=== PATIENT | male | born 1980 | race Caucasian/White ===

== ENCOUNTER 2016-11-01 19:35 | Emergency (ER) | payer BC ==
--- NOTE | 2016-11-01 22:28 | ED CLINICAL REPORT ---
Clinical Report - Physicians/Mid Levels [facility] [address] [place] [address] 11/01/2016 19:38 [id number] Time Seen: 20:13 Nov 01 2016. Arrived- By private vehicle. Historian- patient. HISTORY OF PRESENT ILLNESS Chief Complaint: ABDOMINAL PAIN. At its maximum, severity described as moderate. It is described as "pain", cramping and well localized. Quality not described as migrating. No radiation. It is described as located in the left upper quadrant. This started about 1 week ago but constant starting about 2 hours ago. and is still present. It has been intermittent. The patient has had nausea. No loss of appetite, vomiting or diarrhea. Similar symptoms previously: None. Recent medical care: Not recently seen/assessed. REVIEW OF SYSTEMS No constipation, black stools, hematemesis, difficulty with urination or pain with urination. No urinary frequency, fever, headache, chest pain or joint pain. No skin rash, chills or back pain. All systems otherwise negative, except as recorded above. PAST HISTORY See nurses notes. Has had a single episode of mild urinary calculi. No history of heart disease, lung disease or renal disease. SOCIAL HISTORY Never smoker. Alcohol use. No drug use. ADDITIONAL NOTES The nursing notes have been reviewed. PHYSICAL EXAM Appearance: Alert. Oriented X3. No acute distress. Eyes: Pupils equal, round and reactive to light. Eyes normal inspection. ENT: Nose normal. Pharynx normal. Neck: Normal inspection. Neck supple. No lymphadenopathy. CVS: Normal heart rate and rhythm. Heart sounds normal. Respiratory: No respiratory distress. Breath sounds normal. Abdomen: Soft. Mild tenderness in the left upper quadrant. No rebound tenderness. No organomegaly. No mass. Back: Normal inspection. No CVA tenderness. Skin: Skin warm and dry. Normal skin color. No rash. Normal skin turgor. Extremities: Extremities exhibit normal ROM. Neuro: Oriented X 3. No motor deficit. No sensory deficit. LABS, X-RAYS, AND EKG Laboratory Tests: UA-Culture if indicated: (DEVANG: 11/01/2016 21:50) ( MsgRcvd 11/01/2016 22:00) Final results Test Result Flag Units (Reference) URINE COLOR YELLOW URINE APPEARANCE CLEAR URINE GLUCOSE NEGATIVE (NEGATIVE) URINE BILIRUBIN NEGATIVE (NEGATIVE) URINE KETONE 2+ (NEGATIVE) URINE SPECIFIC GRAVITY 1.020 (1.010-1.030) URINE PH 5.5 (5.0-8.0) URINE PROTEIN NEGATIVE (NEGATIVE) URINE UROBILINOGEN 0.2 EU/dL (0.2-1.0) URINE NITRITE NEGATIVE (NEGATIVE) URINE BLOOD 1+ (NEGATIVE) URINE LEUK ESTERASE NEGATIVE (NEGATIVE) URINE RBC NONE SEEN rbc/hpf (0-1) URINE WBC RARE wbc/hpf (0-1) URINE EPITHELIAL CELLS 0-1 EPI/hpf (0-5) URINE BACTERIA NONE SEEN (NONE SEEN) URINE COMMENT CULT NOT INDICATED URINE CULTURES ARE SET-UP BASED ON THE FOLLOWING CRITERIA:POSITIVE NITRITEPOSITIVE LEUKOCYTE ESTERASEGREATER THAN 10 WHITE BLOOD CELLSMODERATE (2+) OR GREATER BACTERIA CBC w Diff: (DEVANG: 11/01/2016 20:10) ( [facility] 11/01/2016 20:20) Final results Test Result Flag Units (Reference) WHITE BLOOD COUNT 8.4 K/uL (4.5-11.5) RED BLOOD COUNT 5.24 M/uL (4.50-5.90) HEMOGLOBIN 15.9 gm/dL (13.5-17.5) HEMATOCRIT 46.5 % (41.0-53.0) MEAN CELL VOLUME 89 fL (80-100) MEAN CORPUSCULAR HGB 30 pg (26-34) MEAN CORPUSCULAR HGB CONC 34 g/dL (31-37) RED CELL DISTRIBUTION WIDTH 12.4 % (11.6-14.8) PLATELET COUNT 230 K/uL (150-400) NEUTROPHIL % 68.1 % (50-75) LYMPH % 22.6 L % (25-40) MONO % 8.6 % (3-14) EOSINOPHIL % 0.3 % (0-4) BASOPHIL % 0.4 % (0-2) CMP: (DEVANG: 11/01/2016 20:10) ( [facility] 11/01/2016 20:45) Final results Test Result Flag Units (Reference) GLUCOSE 114 H mg/dL (70-110) BUN 18 mg/dL (7-18) CREATININE 1.0 mg/dL (0.6-1.3) Estimated GFR >60 mL/min Estimated GFR- >60 mL/min Note: Persistent reduction over 3 months in eGFR<60 mL/min/1.73 m2 defines CKD. Patients with eGFR values>=60 mL/min/1.73 m2 may also have CKD if evidence ofpersistent proteinuria. Additional information may be foundat www.kidney.org. SODIUM 140 mmol/L (136-145) POTASSIUM 3.4 L mmol/L (3.5-5.1) CHLORIDE 103 mmol/L (98-107) CARBON DIOXIDE 22 mmol/L (21-32) CALCIUM 9.1 mg/dL (8.5-10.1) TOTAL PROTEIN 8.0 g/dL (6.4-8.2) ALBUMIN 4.4 g/dL (3.3-5.0) BILIRUBIN, TOTAL 1.0 mg/dL (0.0-1.0) ALKALINE PHOSPHATASE 58 U/L (46-116) AST (SGOT) 23 U/L (15-37) ALT (SGPT) 44 U/L (12-78) LIPASE 113 U/L (73-393) AMYLASE 45 U/L (25-115) . PROGRESS AND PROCEDURES Course of Care: 20:05. Patient stable. Mild tenderness in the left upper quadrant. No rebound tenderness. He is afebrile and doesn't look significantly toxic. We'll check basic labs and try to make comfortable. Differential includes gastritis versus spleen enlargement versus kidney stone versus other. 22:30. Patient had a long wait waiting for his urinalysis. CBC and CMP are normal. He does have some microcytic hematuria. This could be another kidney stone. Discussed further workup with the patient. At this point in time he does not have evidence of infection or acute renal insufficiency. He probably needs CT urinary tract at some point but at this point in time he doesn't want to wait around for the results. I think this is acceptable as I doubt life-threatening etiology at this time. We'll still give him a trial of a PPI but he should follow-up with a urologist as well as his new primary care provider for further evaluation in the next 3-5 days. Disposition: Discharged in good and improved condition. CLINICAL IMPRESSION Left upper quadrant abdominal pain. Microscopic hematuria INSTRUCTIONS Do not work for one day until better. Drink plenty of fluids. No dietary restrictions. Warnings: Further evaluation is necessary in order to conduct further tests and assess the possibility of serious illness. It is very important to follow up with a physician. GENERAL WARNINGS: Return or contact your physician immediately if your condition worsens or changes unexpectedly, if not improving as expected, or if other problems arise. SPECIFICALLY, return if you develop fever, vomiting, the inability to keep fluids down or fainting; or for continued pain in the abdomen. Prescription Medications: Prilosec 40 mg capsules: take 1 capsule orally every 12 hours for 7 days. Dispense fifteen (15). No refill. Substitution is permissible. Understanding of the discharge instructions verbalized by patient. Follow-up with: [facility], , , [address], , [place] [phone]; Marcel Villalobos MD, Urology, , [address] [place] [address] Follow up. Call for the next available appointment. Reason for referral: Or with another primary care provider. (Electronically signed by Oneal Hartmann, 11/01/2016 23:40)
--- NOTE | 2016-11-01 22:28 | ED ORDER SUMMARY ---
..... Patient: KIET TRUJILLO OrderSheet [facility] VisitID: [id number] [place] [address] 36y, M Registration Date/Time: 11/01/2016 ORDER SHEET Weight: 74.8 kg (stated) Allergies: No Known Drug Allergy GENERAL ORDERS: CBC w Diff Urgent (19:52 11/01/2016 Daron GOFF) (Ack 19:59 ALawrence ER Tech1) (20:04 TLewis R.N.) CMP Urgent (19:52 11/01/2016 Daron GOFF) (Ack 19:59 ALawrence ER Tech1) (20:04 TLewis R.N.) Lipase Urgent (19:52 11/01/2016 Daron GOFF) (Ack 19:59 ALawrence ER Tech1) (20:04 TLewis R.N.) Amylase Urgent (19:52 11/01/2016 Daron GOFF) (Ack 19:59 ALawrence ER Tech1) (20:04 TLewis R.N.) UA-Culture if indicated Urgent (20:18 11/01/2016 JCoates) (Ack 20:28 ALawrence ER Tech1) (21:58 TLewis R.N.) MEDICATION ORDERS: IV FLUIDS: IV NS : initial bolus 1000 mL (1000 mL/hr), then none - (NOW) (19:51 11/01/2016 Daron GOFF) (20:09 TLewis R.N.) Zofran IV 8 mg (NOW) (19:52 11/01/2016 Daron GOFF) (20:05 TLewis R.N.) ORDER SHEET NOTES: [Electronically signed by Domingo Greene R.N. (22:38 11/01/2016)] [Electronically signed by Oneal Hartmann (23:40 11/01/2016)] [Electronically locked/signed by Domingo Greene R.N. (22:38 11/01/2016)]
--- NOTE | 2016-11-01 22:28 | ED ORDER SUMMARY ---
..... Patient: KIET TRUJILLO OrderSheet [facility] VisitID: [id number] [place] [address] 36y, M Registration Date/Time: 11/01/2016 ORDER SHEET Weight: 74.8 kg (stated) Allergies: No Known Drug Allergy GENERAL ORDERS: CBC w Diff Urgent (19:52 11/01/2016 Daron GOFF) (Ack 19:59 ALawrence ER Tech1) (20:04 TLewis R.N.) CMP Urgent (19:52 11/01/2016 Daron GOFF) (Ack 19:59 ALawrence ER Tech1) (20:04 TLewis R.N.) Lipase Urgent (19:52 11/01/2016 Daron GOFF) (Ack 19:59 ALawrence ER Tech1) (20:04 TLewis R.N.) Amylase Urgent (19:52 11/01/2016 Daron GOFF) (Ack 19:59 ALawrence ER Tech1) (20:04 TLewis R.N.) UA-Culture if indicated Urgent (20:18 11/01/2016 JCoates) (Ack 20:28 ALawrence ER Tech1) (21:58 TLewis R.N.) MEDICATION ORDERS: IV FLUIDS: IV NS : initial bolus 1000 mL (1000 mL/hr), then none - (NOW) (19:51 11/01/2016 Daron GOFF) (20:09 TLewis R.N.) Zofran IV 8 mg (NOW) (19:52 11/01/2016 Daron GOFF) (20:05 TLewis R.N.) ORDER SHEET NOTES: [Electronically signed by Domingo Greene R.N. (22:38 11/01/2016)] [Electronically signed by Oneal Hartmann (23:40 11/01/2016)] [Electronically locked/signed by Domingo Greene R.N. (22:38 11/01/2016)]
--- NOTE | 2016-11-01 22:28 | ED CLINICAL REPORT ---
Clinical Report - Physicians/Mid Levels Located [facility] [address] [place] [address] 11/01/2016 19:38 [id number] Time Seen: 20:13 Nov 01 2016. Arrived- By private vehicle. Historian- patient. HISTORY OF PRESENT ILLNESS Chief Complaint: ABDOMINAL PAIN. At its maximum, severity described as moderate. It is described as "pain", cramping and well localized. Quality not described as migrating. No radiation. It is described as located in the left upper quadrant. This started about 1 week ago but constant starting about 2 hours ago. and is still present. It has been intermittent. The patient has had nausea. No loss of appetite, vomiting or diarrhea. Similar symptoms previously: None. Recent medical care: Not recently seen/assessed. REVIEW OF SYSTEMS No constipation, black stools, hematemesis, difficulty with urination or pain with urination. No urinary frequency, fever, headache, chest pain or joint pain. No skin rash, chills or back pain. All systems otherwise negative, except as recorded above. PAST HISTORY See nurses notes. Has had a single episode of mild urinary calculi. No history of heart disease, lung disease or renal disease. SOCIAL HISTORY Never smoker. Alcohol use. No drug use. ADDITIONAL NOTES The nursing notes have been reviewed. PHYSICAL EXAM Appearance: Alert. Oriented X3. No acute distress. Eyes: Pupils equal, round and reactive to light. Eyes normal inspection. ENT: Nose normal. Pharynx normal. Neck: Normal inspection. Neck supple. No lymphadenopathy. CVS: Normal heart rate and rhythm. Heart sounds normal. Respiratory: No respiratory distress. Breath sounds normal. Abdomen: Soft. Mild tenderness in the left upper quadrant. No rebound tenderness. No organomegaly. No mass. Back: Normal inspection. No CVA tenderness. Skin: Skin warm and dry. Normal skin color. No rash. Normal skin turgor. Extremities: Extremities exhibit normal ROM. Neuro: Oriented X 3. No motor deficit. No sensory deficit. LABS, X-RAYS, AND EKG Laboratory Tests: UA-Culture if indicated: (DEVANG: 11/01/2016 21:50) ( MsgRcvd 11/01/2016 22:00) Final results Test Result Flag Units (Reference) URINE COLOR YELLOW URINE APPEARANCE CLEAR URINE GLUCOSE NEGATIVE (NEGATIVE) URINE BILIRUBIN NEGATIVE (NEGATIVE) URINE KETONE 2+ (NEGATIVE) URINE SPECIFIC GRAVITY 1.020 (1.010-1.030) URINE PH 5.5 (5.0-8.0) URINE PROTEIN NEGATIVE (NEGATIVE) URINE UROBILINOGEN 0.2 EU/dL (0.2-1.0) URINE NITRITE NEGATIVE (NEGATIVE) URINE BLOOD 1+ (NEGATIVE) URINE LEUK ESTERASE NEGATIVE (NEGATIVE) URINE RBC NONE SEEN rbc/hpf (0-1) URINE WBC RARE wbc/hpf (0-1) URINE EPITHELIAL CELLS 0-1 EPI/hpf (0-5) URINE BACTERIA NONE SEEN (NONE SEEN) URINE COMMENT CULT NOT INDICATED URINE CULTURES ARE SET-UP BASED ON THE FOLLOWING CRITERIA:POSITIVE NITRITEPOSITIVE LEUKOCYTE ESTERASEGREATER THAN 10 WHITE BLOOD CELLSMODERATE (2+) OR GREATER BACTERIA CBC w Diff: (DEVANG: 11/01/2016 20:10) ( [facility] 11/01/2016 20:20) Final results Test Result Flag Units (Reference) WHITE BLOOD COUNT 8.4 K/uL (4.5-11.5) RED BLOOD COUNT 5.24 M/uL (4.50-5.90) HEMOGLOBIN 15.9 gm/dL (13.5-17.5) HEMATOCRIT 46.5 % (41.0-53.0) MEAN CELL VOLUME 89 fL (80-100) MEAN CORPUSCULAR HGB 30 pg (26-34) MEAN CORPUSCULAR HGB CONC 34 g/dL (31-37) RED CELL DISTRIBUTION WIDTH 12.4 % (11.6-14.8) PLATELET COUNT 230 K/uL (150-400) NEUTROPHIL % 68.1 % (50-75) LYMPH % 22.6 L % (25-40) MONO % 8.6 % (3-14) EOSINOPHIL % 0.3 % (0-4) BASOPHIL % 0.4 % (0-2) CMP: (DEVANG: 11/01/2016 20:10) ( [facility] 11/01/2016 20:45) Final results Test Result Flag Units (Reference) GLUCOSE 114 H mg/dL (70-110) BUN 18 mg/dL (7-18) CREATININE 1.0 mg/dL (0.6-1.3) Estimated GFR >60 mL/min Estimated GFR- >60 mL/min Note: Persistent reduction over 3 months in eGFR<60 mL/min/1.73 m2 defines CKD. Patients with eGFR values>=60 mL/min/1.73 m2 may also have CKD if evidence ofpersistent proteinuria. Additional information may be foundat [email or web address].org. SODIUM 140 mmol/L (136-145) POTASSIUM 3.4 L mmol/L (3.5-5.1) CHLORIDE 103 mmol/L (98-107) CARBON DIOXIDE 22 mmol/L (21-32) CALCIUM 9.1 mg/dL (8.5-10.1) TOTAL PROTEIN 8.0 g/dL (6.4-8.2) ALBUMIN 4.4 g/dL (3.3-5.0) BILIRUBIN, TOTAL 1.0 mg/dL (0.0-1.0) ALKALINE PHOSPHATASE 58 U/L (46-116) AST (SGOT) 23 U/L (15-37) ALT (SGPT) 44 U/L (12-78) LIPASE 113 U/L (73-393) AMYLASE 45 U/L (25-115) . PROGRESS AND PROCEDURES Course of Care: 20:05. Patient stable. Mild tenderness in the left upper quadrant. No rebound tenderness. He is afebrile and doesn't look significantly toxic. We'll check basic labs and try to make comfortable. Differential includes gastritis versus spleen enlargement versus kidney stone versus other. 22:30. Patient had a long wait waiting for his urinalysis. CBC and CMP are normal. He does have some microcytic hematuria. This could be another kidney stone. Discussed further workup with the patient. At this point in time he does not have evidence of infection or acute renal insufficiency. He probably needs CT urinary tract at some point but at this point in time he doesn't want to wait around for the results. I think this is acceptable as I doubt life-threatening etiology at this time. We'll still give him a trial of a PPI but he should follow-up with a urologist as well as his new primary care provider for further evaluation in the next 3-5 days. Disposition: Discharged in good and improved condition. CLINICAL IMPRESSION Left upper quadrant abdominal pain. Microscopic hematuria INSTRUCTIONS Do not work for one day until better. Drink plenty of fluids. No dietary restrictions. Warnings: Further evaluation is necessary in order to conduct further tests and assess the possibility of serious illness. It is very important to follow up with a physician. GENERAL WARNINGS: Return or contact your physician immediately if your condition worsens or changes unexpectedly, if not improving as expected, or if other problems arise. SPECIFICALLY, return if you develop fever, vomiting, the inability to keep fluids down or fainting; or for continued pain in the abdomen. Prescription Medications: Prilosec 40 mg capsules: take 1 capsule orally every 12 hours for 7 days. Dispense fifteen (15). No refill. Substitution is permissible. Understanding of the discharge instructions verbalized by patient. Follow-up with: [facility], , , [address], , [place] [phone]; Marcel Villalobos MD, Urology, , [address] [place] [address] Follow up. Call for the next available appointment. Reason for referral: Or with another primary care provider. (Electronically signed by Oneal [place], 11/01/2016 23:40)
--- NOTE | 2016-11-01 22:28 | ED NURSING NOTES ---
Clinical Report - Nurses [facility] [address] [place] [address] 11/01/2016 19:38 Patient: KIET TRUJILLO TRIAGE Triage time 19:47. Acuity: LEVEL 3. Chief Complaint: ABDOMINAL PAIN and NAUSEA. --19:52 Domingo Greene R.N. 19:47 11/01/16. BP: 136/89. HR: 108. RR: 15. O2 saturation: 100%. Temp: 98.4 F. Pain level now 410. --19:52 Domingo Greene R.N. Weight: 74.8 kg stated. Height/Length: 70 inches Per Patient. BMI: 23.7. --19:52 Domingo Greene R.N. Medications None. --19:51 Domingo Greene R.N. Medication/allergy information source: the patient. --19:52 Domingo Greene R.N. Allergies No Known Drug Allergy. --19:51 Domingo Greene R.N. History Arrived by private vehicle. Historian: patient. Unaccompanied. Primary physician (none). This started today. ( Pt is having upper left abdominal pain that became constant pain about 2 hrs ago with nausea. Aching pain 4/10 with pressure and radiates into the back. Pt denies any urinary symptoms.). He has had nausea. ( Last bm was this am. Pt stated it was normal brown and formed.). Treatment REGISTER IN CHANCERY: None. PAST MEDICAL HX: Immunizations: up-to-date. SURGERY HX: No history of previous surgery. SOCIAL HX: Never smoker. Occasional alcohol use; consumes beer occasionally. No drug use. --19:52 Domingo Greene R.N. ADDITIONAL SURGERIES: no known surgeries. Interventions ID band on patient. To treatment room. --19:52 Domingo Greene R.N. PHYSICAL ASSESSMENT GENERAL / NEURO / PSYCH: Alert. Oriented X 4. Appears in no acute distress. HEENT: Mucous membranes are pink. RESPIRATORY: Respirations not labored. Breath sounds within normal limits. CVS: Normal sinus rhythm noted. Capillary refill less than 2 seconds. GI / : The patient has had nausea. Abdomen soft and nontender. Bowel sounds within normal limits. Normal genitalia. SKIN: Skin is warm and dry. --19:53 Domingo Greene R.N. NURSING PROGRESS NOTES Patient gowned. Two patient identifiers checked. Call light placed in reach. Side rails up x 1. Bed placed in lowest position. Brakes of bed on. --19:53 Domingo Greene R.N. 20:04 11/01/2016 Site #1 started via IV in the right antecubital space with an 20g angiocath, with good blood return; one attempt. Blood drawn: rainbow set. Labeled in the presence of the patient and sent to the lab. Saline lock flushed with 10 mL saline. --20:04 Domingo Greene R.N. 20:05 11/01/2016 Zofran (Ondansetron HCl) IVP 4 mg given over 1 minute(s) via site #1. Allergies verified and confirmed 5 rights. IV patency established. IV site checked: no pain, redness, or swelling. IV flushed thoroughly pre- and post-medication administration. IVP given by RN. --20:05 Domingo Greene R.N. 20:09 11/01/2016 Started bag #1 1000 mL IV Fluids IV NS (Saline); at 1000 mL/hr over 1 hour(s) via site #1 via IV pump. Allergies verified and confirmed 5 rights. IV patency established. IV site checked: no pain, redness, or swelling. IV flushed thoroughly pre- and post-medication administration. --20:09 Domingo Greene R.N. 21:25 11/01/16. BP: 119/70. HR: 89. RR: 15. O2 saturation: 100%. Pain level now 10. --21:26 Domingo Greene R.N. ( Pt feels a little better with nausea.). --21:26 Domingo Greene R.N. 21:58 11/01/2016 IV Fluids IV NS Discontinued: bag #1. Total amount infused: 1000 mL. IV patency established. IV site checked: no pain, redness, or swelling. IV flushed thoroughly. --21:58 Domingo Greene R.N. DISPOSITION / DISCHARGE 22:36 11/01/2016 Site #1 removed upon discharge. Bandaid applied. --22:36 Domingo Greene R.N. Departure time: 22:34. Condition at departure: improved. No learning barriers present. Discharge instructions provided and reviewed with the patient. Reviewed medication(s) side effects, precautions, dosing and course information. Prescription(s) given to the patient. Reviewed referral to a urologist. Work note given (one day). Written instructions provided in Occitan. The patient was discharged by the physician. He was discharged home and unaccompanied at time of discharge. He left the Emergency Department ambulatory and via private vehicle. Patient driving. --22:38 Domingo Greene R.N. 22:33 11/01/16. BP: 118/65. HR: 70. RR: 15. O2 saturation: 98%. Temp: 98.4 F. Pain level now 3/10. --22:38 Domingo Greene R.N. Locked/Released at 11/01/2016 22:38 by Domingo Greene R.N.
--- NOTE | 2016-11-01 23:41 | ED MAR SUMMARY ---
..... Medication Administration Record [facility] [address] [place] [address] Patient: KIET TRUJILLO Visit ID: [id number] 36y, M Weight: 74.8 kg Height/Length: 70 in BMI: 23.7 ALLERGIES: No Known Drug Allergy Given 20:05 11/01/2016 Domingo Greene R.N. Medication Administered: ZOFRAN [IVP] (ONDANSETRON HCL), Dose: 4 mg IVP over 1 minute(s), Site: #1 right AC. Medication Ordered: Zofran IV 8 mg (NOW). Start 20:09 11/01/2016 Domingo Greene RSarahN., Stop 21:58 11/01/2016 Domingo Greene R.N. Medication Administered: IV NS (SALINE), Dose: IV Fluids over 1 hour(s), Rate: 1000 mL/hr, Dispensed: 1000 mL bag, Site: #1 right AC. Medication Ordered: IV NS : initial bolus 1000 mL (1000 mL/hr), then none - (NOW).
--- NOTE | 2016-11-01 23:41 | ED DISCHARGE INSTRUCTIONS ---
Patient: KIET TRUJILLO General Instructions [facility] VisitID: [id number] [address] [place] [address] 36y, M Registration Date/Time: 11/01/2016 Left upper quadrant abdominal pain. Microscopic hematuria INSTRUCTIONS Do not work for one day until better. Drink plenty of fluids. No dietary restrictions. Warnings: Further evaluation is necessary in order to conduct further tests and assess the possibility of serious illness. It is very important to follow up with a physician. GENERAL WARNINGS: Return or contact your physician immediately if your condition worsens or changes unexpectedly, if not improving as expected, or if other problems arise. SPECIFICALLY, return if you develop fever, vomiting, the inability to keep fluids down or fainting; or for continued pain in the abdomen. Prescription Medications: Prilosec 40 mg capsules: take 1 capsule orally every 12 hours for 7 days. Dispense fifteen (15). No refill. Substitution is permissible. Understanding of the discharge instructions verbalized by patient. Follow-up with: [facility], , , [address], , [facility] [id number]; Marcel Villalobos MD, Urology, , [address] [place] [id number] Follow up. Call for the next available appointment. Reason for referral: Or with another primary care provider. ADDITIONAL INFORMATION Abdominal Pain,Uncertain Cause [Male] Based on your visit today, the exact cause of your abdominalpain is not clear. Your exam and tests do not indicate a dangerous cause at this time. However, the signs of a serious problem may take more time to appear. Although your evaluation was reassuring today, sometimes early in the course of many conditions, exam and lab tests can appear normal. Therefore, it is important for you to watch for any new symptoms or worsening of your condition. Causes It may not be obvious what caused your symptoms. Pay attention to things that do seem to make your symptoms worse or better and discuss this with your doctor when you follow up. Diagnosis The evaluation of abdominal pain in the emergency department may onlyrequire an exam by the doctor or it may include blood, urine or imaging studies, depending on many factors. Sometimes exams and tests can identify a cause but in many cases, a clear cause is not found. Further testing at follow up visits may help to suggest a clear diagnosis. Home Care Rest as much as possible until your next exam. Try to avoid any medications (unless otherwise directed by your doctor), foods, activities, or other factors that you may have contributed to your symptoms. Try to eat foods that you know that you have tolerated well in the past. Certain diets may be recommended for some conditions that cause abdominal pain. However, since the cause of your symptoms may not be clear, discuss your diet more with your primary care provider or specialist for further recommendations. Eating several small meals per day as opposed to 2 or 3 larger meals may help. Monitor closely for anything that may make your symptoms worse or better. Pay close attention to symptoms below that may indicate worsening of your condition. Follow Up and Precautions See your doctoras instructed or sooneror if your symptoms are not improving.In some cases, you may need more testing. When to Seek Medical Attention Contact your doctor or see medical attention ifany of the following occur: Pain is becoming worse You are unable to take your medications due to excessive vomiting Swelling of the abdomen Fever of 100.4F (38C) or higher, or as directed by your health care provider Blood in vomit or bowel movements (dark red or black color) Jaundice (yellow color of eyes and skin) New onset of weakness, dizziness or fainting New onset of chest, arm, back, neck or jaw pain Blood In The Urine Blood in the urine ("hematuria") has many possible causes. If it occurs after an injury (such as a car accident or fall), it is most often a sign of bruising to the kidney or bladder. Common medical causes of blood in the urine include urinary tract infection, kidney stone, inflammation, tumors, or certain other diseases of the kidney or bladder. Menstruation can cause blood to appear in the urine sample, although it is not coming from the urinary tract. If only a trace amount of blood is present, it will show up on the urine test, even though the urine may be yellow and not pink or red. This may occur with any of the above conditions, as well as heavy exercise or high fever. In this case, your doctor may want to repeat the urine test on another day. This will show if the blood is still present. If so, then other tests can be done to find out the cause. Home Care: If your urine does not appear bloody (pink, brown or red) then you do not need to restrict your activity in any way. If you can see blood in your urine, rest and avoid heavy exertion until your next exam. Do not use aspirin or anti-inflammatory medicine like ibuprofen (Motrin, Advil) or naproxen (Naprosyn, Aleve). These thin the blood and may increase bleeding. Follow Up with your doctor or as advised by our staff. If you were injured and had blood in your urine, you should have a repeat urine test in 1-2 days. Contact your doctor or return to this facility for this test. [NOTE: A radiologist will review any X-rays that were taken. We will notify you of any new findings that may affect your care.] Get Prompt Medical Attention if any of the following occur: Bright red blood or blood clots in the urine (if a new symptom) Weakness, dizziness or fainting New groin, abdominal or back pain Fever of 100.4F (38C) or higher, or as directed by your healthcare provider Repeated vomiting Bleeding from nose, gums or easy bruising Omeprazole Magnesium Gastro-resistant tablet What is this medicine? OMEPRAZOLE (oh ME pray zol) prevents the production of acid in the stomach. It is used to treat the symptoms of heartburn. You can buy this medicine without a prescription. This product is not for long-term use, unless otherwise directed by your doctor or health personal care home administrator. How should I use this medicine? Take this medicine by mouth. Follow the directions on the product label. If you are taking this medicine without a prescription, take one tablet every day. Do not use for longer than 14 days or repeat a course of treatment more often than every 4 months unless directed by a doctor or healthcare professional. Take your dose at regular intervals every 24 hours. Swallow the tablet whole with a drink of water. Do not crush, break or chew. This medicine works best if taken on an empty stomach 30 minutes before breakfast. If you are using this medicine with the prescription of your doctor or healthcare professional, follow the directions you were given. Do not take your medicine more often than directed. Talk to your sampler radioactive waste regarding the use of this medicine in children. Special care may be needed. What side effects may I notice from receiving this medicine? Side effects that you should report to your doctor or health personal care home administrator as soon as possible: allergic reactions like skin rash, itching or hives, swelling of the face, lips, or tongue bone, muscle or joint pain breathing problems chest pain or chest tightness dark yellow or brown urine diarrhea dizziness fast, irregular heartbeat feeling faint or lightheaded fever or sore throat muscle spasm palpitations redness, blistering, peeling or loosening of the skin, including inside the mouth seizures tremors unusual bleeding or bruising unusually weak or tired yellowing of the eyes or skin Side effects that usually do not require medical attention (Report these to your doctor or health personal care home administrator if they continue or are bothersome.): constipation dry mouth headache loose stools nausea What may interact with this medicine? Do not take this medicine with any of the following medications: atazanavir clopidogrel nelfinavir This medicine may also interact with the following medications: ampicillin certain medicines for anxiety or sleep certain medicines that treat or prevent blood clots like warfarin cyclosporine diazepam digoxin disulfiram iron salts phenytoin prescription medicine for fungal or yeast infection like itraconazole, ketoconazole, voriconazole saquinavir tacrolimus What if I miss a dose? If you miss a dose, take it as soon as you can. If it is almost time for your next dose, take only that dose. Do not take double or extra doses. Where should I keep my medicine? Keep out of the reach of children. Store at room temperature between 20 and 25 degrees C (68 and 77 degrees F). Protect from light and moisture. Throw away any unused medicine after the expiration date. What should I tell my health care provider before I take this medicine? They need to know if you have any of these conditions: black or bloody stools chest pain difficulty swallowing have had heartburn for over 3 months have heartburn with dizziness, lightheadedness or sweating liver disease stomach pain unexplained weight loss vomiting with blood wheezing an unusual or allergic reaction to omeprazole, other medicines, foods, dyes, or preservatives or trying to get breast-feeding What should I watch for while using this medicine? It can take several days before your heartburn gets better. Check with your doctor or health personal care home administrator if your condition does not start to get better, or if it gets worse. Do not treat diarrhea with over the counter products. Contact your doctor if you have diarrhea that lasts more than 2 days or if it is severe and watery. Do not treat yourself for heartburn with this medicine for more than 14 days in a row. You should only use this medicine for a 2-week treatment period once every 4 months. If your symptoms return shortly after your therapy is complete, or within the 4 month time frame, call your doctor or health personal care home administrator. You have been given the following additional information: Abdominal Pain, Unknown Cause, (Male) Hematuria Omeprazole Magnesium Gastro-resistant tablet Do not work for one day until better. (Electronically signed by Oneal Hartmann, 11/01/2016 23:40)
--- NOTE | 2016-11-01 23:41 | ED MED RECONCILIATION SUMMARY ---
Patient: KIET TRUJILLO Medication Reconciliation Report [facility] VisitID: [id number] [address] [place] [address] 36y, M Registration Date/Time: 11/01/2016 Weight: 74.8 kg Height/Length: 70 in. BMI: 23.7 ALLERGIES: No Known Drug Allergy The patient's Home Medications are listed below: NONE. The source(s) of the original Home Medication information: patient The following Medications were given to the patient in the Emergency Department: Zofran [IVP] IVP 4 mg, administered: 11/01/2016 8:05:00 PM IV NS IV Fluids bolus 0, then 1000 mL/hr, administered: 11/01/2016 8:09:00 PM The following Medications were prescribed to the patient: Prilosec 40 mg capsules: take 1 capsule orally every 12 hours for 7 days. Dispense fifteen (15). No refill. Substitution is permissible. -- Oneal Hartmann
--- NOTE | 2016-11-01 23:41 | ED MAR SUMMARY ---
..... Medication Administration Record [facility] [address] [place] [address] Patient: KIET TRUJILLO Visit ID: [id number] 36y, M Weight: 74.8 kg Height/Length: 70 in BMI: 23.7 ALLERGIES: No Known Drug Allergy Given 20:05 11/01/2016 Domingo Greene R.N. Medication Administered: ZOFRAN [IVP] (ONDANSETRON HCL), Dose: 4 mg IVP over 1 minute(s), Site: #1 right AC. Medication Ordered: Zofran IV 8 mg (NOW). Start 20:09 11/01/2016 Domingo Greene RSarahN., Stop 21:58 11/01/2016 Domingo Greene R.N. Medication Administered: IV NS (SALINE), Dose: IV Fluids over 1 hour(s), Rate: 1000 mL/hr, Dispensed: 1000 mL bag, Site: #1 right AC. Medication Ordered: IV NS : initial bolus 1000 mL (1000 mL/hr), then none - (NOW).
--- NOTE | 2016-11-01 23:41 | ED MED RECONCILIATION SUMMARY ---
Patient: KIET TRUJILLO Medication Reconciliation Report [facility] VisitID: [id number] [address] [place] [address] 36y, M Registration Date/Time: 11/01/2016 Weight: 74.8 kg Height/Length: 70 in. BMI: 23.7 ALLERGIES: No Known Drug Allergy The patient's Home Medications are listed below: NONE. The source(s) of the original Home Medication information: patient The following Medications were given to the patient in the Emergency Department: Zofran [IVP] IVP 4 mg, administered: 11/01/2016 8:05:00 PM IV NS IV Fluids bolus 0, then 1000 mL/hr, administered: 11/01/2016 8:09:00 PM The following Medications were prescribed to the patient: Prilosec 40 mg capsules: take 1 capsule orally every 12 hours for 7 days. Dispense fifteen (15). No refill. Substitution is permissible. -- Oneal Hartmann
--- NOTE | 2016-11-01 23:41 | ED DISCHARGE INSTRUCTIONS ---
Patient: KIET TRUJILLO General Instructions [facility] VisitID: [id number] [address] [place] [address] 36y, M Registration Date/Time: 11/01/2016 Left upper quadrant abdominal pain. Microscopic hematuria INSTRUCTIONS Do not work for one day until better. Drink plenty of fluids. No dietary restrictions. Warnings: Further evaluation is necessary in order to conduct further tests and assess the possibility of serious illness. It is very important to follow up with a physician. GENERAL WARNINGS: Return or contact your physician immediately if your condition worsens or changes unexpectedly, if not improving as expected, or if other problems arise. SPECIFICALLY, return if you develop fever, vomiting, the inability to keep fluids down or fainting; or for continued pain in the abdomen. Prescription Medications: Prilosec 40 mg capsules: take 1 capsule orally every 12 hours for 7 days. Dispense fifteen (15). No refill. Substitution is permissible. Understanding of the discharge instructions verbalized by patient. Follow-up with: [facility], , , [address], , [facility] [address]; Marcel Villalobos MD, Urology, , [address] [place] [id number] Follow up. Call for the next available appointment. Reason for referral: Or with another primary care provider. ADDITIONAL INFORMATION Abdominal Pain,Uncertain Cause [Male] Based on your visit today, the exact cause of your abdominalpain is not clear. Your exam and tests do not indicate a dangerous cause at this time. However, the signs of a serious problem may take more time to appear. Although your evaluation was reassuring today, sometimes early in the course of many conditions, exam and lab tests can appear normal. Therefore, it is important for you to watch for any new symptoms or worsening of your condition. Causes It may not be obvious what caused your symptoms. Pay attention to things that do seem to make your symptoms worse or better and discuss this with your doctor when you follow up. Diagnosis The evaluation of abdominal pain in the emergency department may onlyrequire an exam by the doctor or it may include blood, urine or imaging studies, depending on many factors. Sometimes exams and tests can identify a cause but in many cases, a clear cause is not found. Further testing at follow up visits may help to suggest a clear diagnosis. Home Care Rest as much as possible until your next exam. Try to avoid any medications (unless otherwise directed by your doctor), foods, activities, or other factors that you may have contributed to your symptoms. Try to eat foods that you know that you have tolerated well in the past. Certain diets may be recommended for some conditions that cause abdominal pain. However, since the cause of your symptoms may not be clear, discuss your diet more with your primary care provider or specialist for further recommendations. Eating several small meals per day as opposed to 2 or 3 larger meals may help. Monitor closely for anything that may make your symptoms worse or better. Pay close attention to symptoms below that may indicate worsening of your condition. Follow Up and Precautions See your doctoras instructed or sooneror if your symptoms are not improving.In some cases, you may need more testing. When to Seek Medical Attention Contact your doctor or see medical attention ifany of the following occur: Pain is becoming worse You are unable to take your medications due to excessive vomiting Swelling of the abdomen Fever of 100.4F (38C) or higher, or as directed by your health care provider Blood in vomit or bowel movements (dark red or black color) Jaundice (yellow color of eyes and skin) New onset of weakness, dizziness or fainting New onset of chest, arm, back, neck or jaw pain Blood In The Urine Blood in the urine ("hematuria") has many possible causes. If it occurs after an injury (such as a car accident or fall), it is most often a sign of bruising to the kidney or bladder. Common medical causes of blood in the urine include urinary tract infection, kidney stone, inflammation, tumors, or certain other diseases of the kidney or bladder. Menstruation can cause blood to appear in the urine sample, although it is not coming from the urinary tract. If only a trace amount of blood is present, it will show up on the urine test, even though the urine may be yellow and not pink or red. This may occur with any of the above conditions, as well as heavy exercise or high fever. In this case, your doctor may want to repeat the urine test on another day. This will show if the blood is still present. If so, then other tests can be done to find out the cause. Home Care: If your urine does not appear bloody (pink, brown or red) then you do not need to restrict your activity in any way. If you can see blood in your urine, rest and avoid heavy exertion until your next exam. Do not use aspirin or anti-inflammatory medicine like ibuprofen (Motrin, Advil) or naproxen (Naprosyn, Aleve). These thin the blood and may increase bleeding. Follow Up with your doctor or as advised by our staff. If you were injured and had blood in your urine, you should have a repeat urine test in 1-2 days. Contact your doctor or return to this facility for this test. [NOTE: A radiologist will review any X-rays that were taken. We will notify you of any new findings that may affect your care.] Get Prompt Medical Attention if any of the following occur: Bright red blood or blood clots in the urine (if a new symptom) Weakness, dizziness or fainting New groin, abdominal or back pain Fever of 100.4F (38C) or higher, or as directed by your healthcare provider Repeated vomiting Bleeding from nose, gums or easy bruising Omeprazole Magnesium Gastro-resistant tablet What is this medicine? OMEPRAZOLE (oh ME pray zol) prevents the production of acid in the stomach. It is used to treat the symptoms of heartburn. You can buy this medicine without a prescription. This product is not for long-term use, unless otherwise directed by your doctor or health post acute care nurse. How should I use this medicine? Take this medicine by mouth. Follow the directions on the product label. If you are taking this medicine without a prescription, take one tablet every day. Do not use for longer than 14 days or repeat a course of treatment more often than every 4 months unless directed by a doctor or healthcare professional. Take your dose at regular intervals every 24 hours. Swallow the tablet whole with a drink of water. Do not crush, break or chew. This medicine works best if taken on an empty stomach 30 minutes before breakfast. If you are using this medicine with the prescription of your doctor or healthcare professional, follow the directions you were given. Do not take your medicine more often than directed. Talk to your oil well driller regarding the use of this medicine in children. Special care may be needed. What side effects may I notice from receiving this medicine? Side effects that you should report to your doctor or health post acute care nurse as soon as possible: allergic reactions like skin rash, itching or hives, swelling of the face, lips, or tongue bone, muscle or joint pain breathing problems chest pain or chest tightness dark yellow or brown urine diarrhea dizziness fast, irregular heartbeat feeling faint or lightheaded fever or sore throat muscle spasm palpitations redness, blistering, peeling or loosening of the skin, including inside the mouth seizures tremors unusual bleeding or bruising unusually weak or tired yellowing of the eyes or skin Side effects that usually do not require medical attention (Report these to your doctor or health post acute care nurse if they continue or are bothersome.): constipation dry mouth headache loose stools nausea What may interact with this medicine? Do not take this medicine with any of the following medications: atazanavir clopidogrel nelfinavir This medicine may also interact with the following medications: ampicillin certain medicines for anxiety or sleep certain medicines that treat or prevent blood clots like warfarin cyclosporine diazepam digoxin disulfiram iron salts phenytoin prescription medicine for fungal or yeast infection like itraconazole, ketoconazole, voriconazole saquinavir tacrolimus What if I miss a dose? If you miss a dose, take it as soon as you can. If it is almost time for your next dose, take only that dose. Do not take double or extra doses. Where should I keep my medicine? Keep out of the reach of children. Store at room temperature between 20 and 25 degrees C (68 and 77 degrees F). Protect from light and moisture. Throw away any unused medicine after the expiration date. What should I tell my health care provider before I take this medicine? They need to know if you have any of these conditions: black or bloody stools chest pain difficulty swallowing have had heartburn for over 3 months have heartburn with dizziness, lightheadedness or sweating liver disease stomach pain unexplained weight loss vomiting with blood wheezing an unusual or allergic reaction to omeprazole, other medicines, foods, dyes, or preservatives or trying to get breast-feeding What should I watch for while using this medicine? It can take several days before your heartburn gets better. Check with your doctor or health post acute care nurse if your condition does not start to get better, or if it gets worse. Do not treat diarrhea with over the counter products. Contact your doctor if you have diarrhea that lasts more than 2 days or if it is severe and watery. Do not treat yourself for heartburn with this medicine for more than 14 days in a row. You should only use this medicine for a 2-week treatment period once every 4 months. If your symptoms return shortly after your therapy is complete, or within the 4 month time frame, call your doctor or health post acute care nurse. You have been given the following additional information: Abdominal Pain, Unknown Cause, (Male) Hematuria Omeprazole Magnesium Gastro-resistant tablet Do not work for one day until better. (Electronically signed by Oneal Hartmann, 11/01/2016 23:40)
== END 2016-11-01 22:39 | disposition home or self-care (01) ==
LOC: ED SRH 19:35
DX: R10.12 Left upper quadrant pain (principal); R31.29 Other microscopic hematuria
CPT/HCPCS: 90004; 90100; 92235; 92530; 95059

== ENCOUNTER 2016-11-13 14:52 | Outpatient (CLI) | payer BC ==
--- NOTE | 2016-11-13 15:23 | DIAGNOSTIC IMAGING REPORT ---
PROCEDURE: CT ABDOMEN/PELVIS W/O CONTRAST INDICATION: Flank pain and hematuria x 1 week. Initial encounter. TECHNIQUE: Noncontrast axial images were obtained of the entire abdomen and pelvis with sagittal and coronal reformations. COMPARISON: None. FINDINGS: ABDOMEN: Normal kidneys and ureters without evidence of calculi or hydronephrosis. Lung base are clear. Heart size is normal. Contracted gallbladder. Liver, pancreas, spleen and adrenal glands are normal. Normal abdominal aorta nonspecific bowel gas pattern. Stomach filled with gastric contents. PELVIS: Normal appendix. Normal bladder. No pelvic mass, free fluid or inflammatory changes. Bones are unremarkable. IMPRESSION: 1. Normal urinary tract. All CT scans at this facility use dose modulation, iterative reconstruction, and/or weight-based dosing when appropriate to reduce radiation dose to as low as reasonably achievable.
== END 2016-11-13 23:00 ==
LOC: CT SRH 14:52
DX: R10.9 Unspecified abdominal pain (principal)